=== PATIENT | female | born 1970 | race African-American/Black ===

== ENCOUNTER 2019-01-02 18:03 | Emergency (ER) | payer OTHER, SELFPAY ==
--- NOTE | 2019-01-02 18:54 | RAD ---
LEFT ANKLE THREE VIEWS: 01/02/19 INDICATION: Left ankle injury. COMPARISON: None. IMPRESSION: No acute fracture or subluxation is evident. Enthesopathic change is seen off the calcaneus. POS: [facility]
[2019-01-02] MEDS ORDERED: Ketorolac Tromethamine 30 MG/ML VIAL ONE (19:04)
--- NOTE | 2019-01-02 19:23 | RAD ---
LEFT FOOT THREE VIEWS: 01/02/19 INDICATION: [place] pop in foot while walking with left foot pain. COMPARISON: None. FINDINGS: There is enthesopathic change off the calcaneus. No acute fracture or subluxation is evident. 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 Accessory ossicle seen adjacent to the cuboid. Lisfranc alignmen t is preserved. IMPRESSION: No acute osseous abnormality. POS: [facility]
== END 2019-01-02 20:24 | disposition home or self-care (01) ==
LOC: ERS 18:03
DX: M79.672 Pain in left foot (principal); I10 Essential (primary) hypertension; F32.9 Major depressive disorder, single episode, unspecified; F17.210 Nicotine dependence, cigarettes, uncomplicated; Z86.73 Personal history of transient ischemic attack (TIA), and cerebral infarction without residual deficits; X50.9XXA Other and unspecified overexertion or strenuous movements or postures, initial encounter
CPT/HCPCS: 96372; J1885